=== PATIENT | male | born 1960 | race Caucasian/White ===

== ENCOUNTER 2020-03-28 23:22 | Inpatient (IN) | payer MEDICARE, OTHER ==
[~2020-03-28 23:22] MED LIST: ASPIRIN CHEWABL81 MG PO; CARAFATE1 GM PO; CENTRUM SILVER1 EAC1 PO; COLACE100 MG PO; LEVAQUIN500 MG PO; MAG-OXIDE 400M400 MG PO; METFORMIN HCL500 MG PO; PEPCID AC20 MG PO; SYNTHROID25 MCG PO; ZOFRAN4 MG PO
[2020-03-28 23:49] LABS: BASOPHIL 0.7 % (0-2); EOSINOPHIL 0.6 % (0-5); HCT 53.6 % (42.0-52.0); HGB 17.5 g/dl (13.2-18.0); LYMPHOCYTE 28.5 % (15-48); MCH 27.3 pg (25.0-31.0); MCHC 32.6 g/dL (32.0-36.0); MCV 83.5 fL (78.0-100.0); MONOCYTE 7.3 % (0-12); MPV 11.6 fL (6.0-9.5); NEUTROPHIL 62.6 % (41-80); NRBC 0; PLT 314 K/uL (150-400); RBC 6.42 M/uL (4.70-6.00); RDW 15.6 % (11.5-14.0); WBC 14.4 K/uL (4.0-10.5)
[2020-03-29] LABS: ALBUMIN 3.3 g/dL (3.4-5.0); BILIRUBIN - TOTAL 0.8 mg/dL (0.2-1.0); BUN/CREAT RATIO (CALC) 27.9 RATIO; CREATININE 0.68 mg/dL (0.67-1.17); GLOBULIN (CALCULATION) 4.6 g/dL; POTASSIUM 3.7 mmol/L (3.5-5.1); TOTAL PROTEIN 7.9 g/dL (6.4-8.2)
[2020-03-29 03:29] LABS: BILIRUBIN NEGATIVE (NEGATIVE); BLOOD NEGATIVE Ery/uL (NEGATIVE); CLARITY CLEAR (CLEAR); COLOR YELLOW (YELLOW); GLUCOSE (U) 3+ mg/dL (NORMAL); LEUKOCYTES NEGATIVE Leu/uL (NEGATIVE); NITRITE NEGATIVE (NEGATIVE); PROTEIN NEGATIVE (NEGATIVE); SPECIFIC GRAVITY 1.015 (1.001-1.030); UROBILINOGEN 0.2 mg/dL (0.2-1.0); pH 5.5 (5.0-9.0)
[2020-03-29 08:25] LABS: BASOPHIL 0.4 % (0-2); EOSINOPHIL 0 % (0-5); HCT 51.9 % (42.0-52.0); HGB 16.6 g/dl (13.2-18.0); LYMPHOCYTE 14.9 % (15-48); MCH 27.4 pg (25.0-31.0); MCV 85.8 fL (78.0-100.0); MONOCYTE 4.8 % (0-12); MPV 11.4 fL (6.0-9.5); NEUTROPHIL 79.5 % (41-80); NRBC 0; PLT 279 K/uL (150-400); RBC 6.05 M/uL (4.70-6.00); WBC 14.9 K/uL (4.0-10.5)
[2020-03-29 08:47] LABS: BUN/CREAT RATIO (CALC) 30.8 RATIO; CREATININE 0.65 mg/dL (0.67-1.17); POTASSIUM 4.7 mmol/L (3.5-5.1)
[2020-03-29] MEDS ORDERED: GABAPENTIN600 MG PO (09:33)
[2020-03-29] MEDS ORDERED: TRADJENTA5 MG PO (09:34)
[2020-03-29] MEDS ORDERED: METFORMIN HCL500 MG PO (09:35)
[2020-03-29] MEDS ORDERED: LIPITOR40 M1 PO (09:36)
[2020-03-29] MEDS ORDERED: FLOMAX0.4 MG PO (09:37)
[2020-03-29] MEDS ORDERED: PROTONIX20 MG PO (09:37)
[2020-03-29] MEDS ORDERED: CILOSTAZOL50 MG PO (09:38)
[2020-03-29] MEDS ORDERED: ZOLOFT100 MG PO (09:39)
[2020-03-29 15:10] LABS: AMPHETAMINES NEGATIVE (NEGATIVE); BARBITURATES NEGATIVE (NEGATIVE); ECSTASY (MDMA) NEGATIVE (NEGATIVE); MARIJUANA (THC) NEGATIVE (NEGATIVE); METHADONE NEGATIVE (NEGATIVE); OXYCODONE NEGATIVE (NEGATIVE)
[2020-03-29 15:11] LABS: OPIATES POSITIVE (NEGATIVE)
--- NOTE | 2020-03-29 16:11 | NUR ---
03/29/20 A social work referral was received due to the expense of living in a motel. Mr. Parry reports to have been living at [facility] for the past 4 months. His rent is $700.00 and his SS is $1000. Mr. Parry was evicted from the [facility] due to arguements over the rent. He then moved to a subsidized rent apartment. Mr. Parry left the apartment because of conflict with a neighbor. - Mr. Parry receives $20.00 in [place]. - Nola Giordano, sister, [phone], was telephoned from Mr. Parry's room. Ms. Lewis and Mr. Parry were educated to other subsidized rent apartments and [employer]. - Mr. Parry states that he is willing to go to a [place]. A search has begun.
--- NOTE | 2020-03-30 17:48 | NUR ---
NEIL SHAHID DWAYNE WITH [facility]. CLINICALLY PATIENT HAS BEEN ACCEPTED, BUT HIS FINANCIAL INFORMATION HAS BE VERIFIED IN THE MORNING WHEN THEIR BUSINESS OFFICE PERSON IS BACK. ADVISED MR. GRAY OF THIS POSSIBLITY. ALSO ADVISED DR. MENDOZA OF THIS INFORMATION.
--- NOTE | 2020-03-31 13:34 | NUR ---
ADVISED MR. GRAY THAT [facility] HAD ACCEPTED HIM FOR PLACEMENT. PT. AGREED WITH PLACEMENT AND SIGNED CHOICE FORM.
--- NOTE | 2020-04-01 11:59 | NUR ---
04/01/20 [facility] has accepted Mr. Parry for admission today. Please fax DS to: [phone] and call report to: [phone]. MD requested hard scripts for any narcotics. Nola, sister, [phone], has agreed to transport Mr. Parry. Report given to MS RONALD Garcia.
[2020-04-01] MEDS ORDERED: CARAFATE1 GM PO (14:08)
[2020-04-01] MEDS ORDERED: GABAPENTIN600 MG PO (14:08)
[2020-04-01] MEDS ORDERED: PANTOPRAZOLE SO40 MG PO (14:08)
[2020-04-01] MEDS ORDERED: ZOFRAN4 M1 PO (14:10)
--- NOTE | 2020-04-01 19:21 | NUR ---
MULTI ATTEMPS TO CALL SISTER, PATIENT WILL HAVE TO STAY ANOTHER NIGHT UNTIL MORNING WHEN A RIDE WILL BE ABLE TO TAKE HIM, HOUSE AND NS NOTIFIED, [facility] NOTIFIED
--- NOTE | 2020-04-02 07:14 | NUR ---
Patients sister, Nola, arrived to the desk representative downstairs to bring $275 to this patient. The money was left with security and placed in an envelope. Security and this nurse took the envelope and handed it to the patient.
--- NOTE | 2020-04-02 10:32 | NUR ---
04/02/20 Mr. Parry's sister, Nola Lewis, [phone], presented to the hospital after 7 p.m. to transport Mr. Parry to [facility]. Nursing reports to have already called [facility] to inform them pat would not be arriving on 04/01/20. Today, Ms. Lewis cannot be reached by telephone. A voucher was provided for [facility] to transport. [facility] with the cab company agreed to call the [facility] upon arrival to transport patient into the facility. John Jean Baptiste at [facility] agreed for a staff member to assist Mr. Parry into the facility. - Report was given to MS RONALD Garcia.
== END 2020-04-02 11:00 | DRG 391 ==
LOC: FER 23:22 → FMS 03-29 03:08
PROVIDERS: Emergency Medicine; Nurse Practitioner; Surgery; ADMIT Internal Medicine
PROC: 0DB78ZX Excision of Stomach, Pylorus, Via Natural or Artificial Opening Endoscopic, Diagnostic (ICD-10-PCS; principal; 2020-03-31 13:15)
DX: K20.90 Esophagitis, unspecified without bleeding (principal); K85.90 Acute pancreatitis without necrosis or infection, unspecified; C25.3 Malignant neoplasm of pancreatic duct; K86.2 Cyst of pancreas; R64 Cachexia; Z68.1 Body mass index [BMI] 19.9 or less, adult; K44.9 Diaphragmatic hernia without obstruction or gangrene; K29.70 Gastritis, unspecified, without bleeding; E11.65 Type 2 diabetes mellitus with hyperglycemia; I10 Essential (primary) hypertension; E78.5 Hyperlipidemia, unspecified; I25.10 Atherosclerotic heart disease of native coronary artery without angina pectoris; E03.9 Hypothyroidism, unspecified; M19.90 Unspecified osteoarthritis, unspecified site; F17.210 Nicotine dependence, cigarettes, uncomplicated; Z20.822 Contact with and (suspected) exposure to COVID-19; E86.0 Dehydration; H54.7 Unspecified visual loss; E11.51 Type 2 diabetes mellitus with diabetic peripheral angiopathy without gangrene; G89.29 Other chronic pain; M54.5 Low back pain; I25.2 Old myocardial infarction; Z98.42 Cataract extraction status, left eye; Z98.41 Cataract extraction status, right eye; Z89.512 Acquired absence of left leg below knee; Z98.890 Other specified postprocedural states
CPT/HCPCS: 36415; 71045; 74183; 80048; 80053; 80061; 80305; 81003; 82378; 83605; 83690; 84484; 85025; 86301; 87040; 88305; 93005; 97110; 97116; 97162; 97166; 97530-GP; 97535; A9579; J1170; J1650; J2270; J2405; J2704; J7030; J7120; Q9967; U0002

== ENCOUNTER 2021-05-31 11:25 | Emergency (ER) | payer MEDICARE, OTHER ==
[~2021-05-31 11:25] MED LIST changes: +CILOSTAZOL50 MG PO; +FLOMAX0.4 MG PO; +GABAPENTIN600 MG PO; +LIPITOR40 M1 PO; +PANTOPRAZOLE SO40 MG PO; +PROTONIX20 MG PO; +TRADJENTA5 MG PO; +ZOFRAN4 M1 PO; +ZOLOFT100 MG PO
[2021-05-31 11:58] LABS: BASOPHIL 0.5 % (0-2); EOSINOPHIL 1.1 % (0-5); HCT 45.9 % (42.0-52.0); LYMPHOCYTE 26.3 % (15-48); MCH 27.6 pg (25.0-31.0); MCHC 32.7 g/dL (32.0-36.0); MCV 84.4 fL (78.0-100.0); MONOCYTE 7.5 % (0-12); MPV 10.7 fL (6.0-9.5); NEUTROPHIL 64.4 % (41-80); NRBC 0; PLT 283 K/uL (150-400); RBC 5.44 M/uL (4.70-6.00); RDW 14.6 % (11.5-14.0); WBC 10.9 K/uL (4.0-10.5)
[2021-05-31 12:10] LABS: ALBUMIN 3.1 g/dL (3.4-5.0); BILIRUBIN - TOTAL 0.6 mg/dL (0.2-1.0); BUN/CREAT RATIO (CALC) 47.8 RATIO; CREATININE 0.67 mg/dL (0.67-1.17); GLOBULIN (CALCULATION) 4.4 g/dL; POTASSIUM 4.9 mmol/L (3.5-5.1); TOTAL PROTEIN 7.5 g/dL (6.4-8.2)
[2021-05-31 12:12] LABS: BILIRUBIN NEGATIVE (NEGATIVE); BLOOD NEGATIVE Ery/uL (NEGATIVE); CLARITY CLEAR (CLEAR); COLOR YELLOW (YELLOW); GLUCOSE (U) 3+ mg/dL (NORMAL); LEUKOCYTES NEGATIVE Leu/uL (NEGATIVE); NITRITE NEGATIVE (NEGATIVE); PROTEIN NEGATIVE (NEGATIVE); UROBILINOGEN 0.2 mg/dL (0.2-1.0); pH 5.5 (5.0-9.0)
--- NOTE | 2021-06-02 09:57 | NUR ---
06/02/21 Mr. Parry presented to the ED on 05/31. He left [facility] and [facility] and went to the home of his mother. Mr. Parry is blind. Apparently, his mother was administering his medications incorrectly. - Mr. Parry requested to return to [facility]. He said he left the facility because he wanted "a little break". - [facility] did agree to accept him back. However, they will not consider readmission if he leaves [facility] again. - Discussion took place with Mr. Parry re: the multiple previous denials from facilities before [facility] accepted him and the likelyhood of the next placement being far from his family. His sister, Nola Lewis, was reached by telephone on 06/01/21. The conversation with Mr. Parry was reiterated to her. This social media coordinator has been unable to reach Shama Parry, mother, via telephone. Ms. Lewis agreed to discuss the issues with her mother.
== END 2021-05-31 17:16 | disposition home or self-care (01) ==
LOC: FER 11:25
PROVIDERS: Emergency Medicine
DX: E11.65 Type 2 diabetes mellitus with hyperglycemia (principal); E11.69 Type 2 diabetes mellitus with other specified complication; H54.3 Unqualified visual loss, both eyes; F17.210 Nicotine dependence, cigarettes, uncomplicated
CPT/HCPCS: 36415; 71045; 80053; 81003; 85025; J7030

== ENCOUNTER 2021-08-22 10:24 | Emergency (ER) | payer MEDICARE, OTHER ==
[2021-08-22 11:26] LABS: BASOPHIL 0.4 % (0-2); EOSINOPHIL 0.1 % (0-5); HCT 51.4 % (42.0-52.0); HGB 16.9 g/dl (13.2-18.0); MCH 27.8 pg (25.0-31.0); MCHC 32.9 g/dL (32.0-36.0); MCV 84.5 fL (78.0-100.0); MONOCYTE 6.6 % (0-12); MPV 11.1 fL (6.0-9.5); NEUTROPHIL 79.4 % (41-80); NRBC 0; PLT 339 K/uL (150-400); RBC 6.08 M/uL (4.70-6.00); RDW 14.6 % (11.5-14.0); WBC 18.5 K/uL (4.0-10.5)
[2021-08-22 11:49] LABS: ALBUMIN 3.4 g/dL (3.4-5.0); BILIRUBIN - TOTAL 0.5 mg/dL (0.2-1.0); CREATININE 0.62 mg/dL (0.67-1.17); GLOBULIN (CALCULATION) 4.4 g/dL; POTASSIUM 3.9 mmol/L (3.5-5.1); TOTAL PROTEIN 7.8 g/dL (6.4-8.2)
[2021-08-22 14:15] LABS: BILIRUBIN NEGATIVE (NEGATIVE); BLOOD NEGATIVE Ery/uL (NEGATIVE); CLARITY CLEAR (CLEAR); COLOR YELLOW (YELLOW); GLUCOSE (U) 3+ mg/dL (NORMAL); LEUKOCYTES NEGATIVE Leu/uL (NEGATIVE); NITRITE NEGATIVE (NEGATIVE); PROTEIN NEGATIVE (NEGATIVE); UROBILINOGEN 0.2 mg/dL (0.2-1.0)
== END 2021-08-22 18:15 | disposition home or self-care (01) ==
LOC: FER 10:24
PROVIDERS: Emergency Medicine
DX: E11.65 Type 2 diabetes mellitus with hyperglycemia (principal); K29.70 Gastritis, unspecified, without bleeding; I25.2 Old myocardial infarction; I10 Essential (primary) hypertension; F17.210 Nicotine dependence, cigarettes, uncomplicated; Z79.84 Long term (current) use of oral hypoglycemic drugs; Z79.4 Long term (current) use of insulin
CPT/HCPCS: 36415; 74022; 80053; 81003; 83605; 83690; 84484; 85025; 93005; 96372; J2405; J7030; Q9967

== ENCOUNTER 2021-08-23 03:34 | Emergency (ER) | payer MEDICARE, OTHER ==
[2021-08-23 04:04] LABS: BASOPHIL 0.3 % (0-2); EOSINOPHIL 0.1 % (0-5); HCT 50.3 % (42.0-52.0); HGB 16.3 g/dl (13.2-18.0); MCH 27.5 pg (25.0-31.0); MCHC 32.4 g/dL (32.0-36.0); MCV 84.8 fL (78.0-100.0); MONOCYTE 7.9 % (0-12); NEUTROPHIL 78.3 % (41-80); NRBC 0; PLT 347 K/uL (150-400); RBC 5.93 M/uL (4.70-6.00); RDW 14.7 % (11.5-14.0); WBC 17.7 K/uL (4.0-10.5)
[2021-08-23 04:22] LABS: ALBUMIN 3.1 g/dL (3.4-5.0); BILIRUBIN - TOTAL 0.4 mg/dL (0.2-1.0); BUN/CREAT RATIO (CALC) 37.1 RATIO; CREATININE 0.62 mg/dL (0.67-1.17); GLOBULIN (CALCULATION) 4.4 g/dL; POTASSIUM 4.5 mmol/L (3.5-5.1); TOTAL PROTEIN 7.5 g/dL (6.4-8.2)
[2021-08-23 05:12] LABS: BILIRUBIN 1+ mg/dL (NEGATIVE); BLOOD NEGATIVE Ery/uL (NEGATIVE); CLARITY CLEAR (CLEAR); COLOR YELLOW (YELLOW); GLUCOSE (U) 3+ mg/dL (NORMAL); LEUKOCYTES NEGATIVE Leu/uL (NEGATIVE); NITRITE NEGATIVE (NEGATIVE); PROTEIN TRACE (LOW) mg/dL (NEGATIVE); SPECIFIC GRAVITY 1.015 (1.001-1.030); UROBILINOGEN 0.2 mg/dL (0.2-1.0)
[2021-08-23 05:14] LABS: CORONAVIRUS 2019 SARS-COV-2 NEGATIVE (NEGATIVE); INFLUENZA A NAA NEGATIVE (NEGATIVE)
[2021-08-23 05:17] LABS: AMPHETAMINES NEGATIVE (NEGATIVE); BARBITURATES NEGATIVE (NEGATIVE); ECSTASY (MDMA) NEGATIVE (NEGATIVE); MARIJUANA (THC) NEGATIVE (NEGATIVE); METHADONE NEGATIVE (NEGATIVE); OPIATES NEGATIVE (NEGATIVE); OXYCODONE NEGATIVE (NEGATIVE)
[2021-08-23 05:30] LABS: AMORPHOUS PHOSPHATE CRYSTALS MODERATE; BACTERIA 1+; SQUAMOUS EPITHELIAL CELLS RARE; URINARY RBC RARE; URINARY WBC RARE
== END 2021-08-23 11:20 | disposition home or self-care (01) ==
LOC: FER 03:34
PROVIDERS: Internal Medicine
DX: R10.13 Epigastric pain (principal); E11.65 Type 2 diabetes mellitus with hyperglycemia; F17.210 Nicotine dependence, cigarettes, uncomplicated; Z20.822 Contact with and (suspected) exposure to COVID-19
CPT/HCPCS: 36415; 80053; 80305; 81001; 82009; 83690; 84145; 85025; J0696; J7030; U0002